=== PATIENT | male | born 1955 | race Caucasian/White ===

== ENCOUNTER 2021-07-13 21:41 | Emergency (ER) | payer OTHER, SELFPAY ==
--- NOTE | ~2021-07-13 | XR_ITS ---
EXAMINATION: XR chest 2V DATE: 07/13/2021 22:25 INDICATION: Shortness of breath. TECHNIQUE: Frontal and lateral views of the chest were obtained. COMPARISON: Chest CT 07/13/2021 FINDINGS: There is mild scarring at the lung apices. No pleural effusion or pneumothorax. The heart s ize is normal. Calcified right hilar and mediastinal lymph nodes are consistent with old granulomatou s disease. IMPRESSION: 1. Mild scarring at the lung apices. Reviewed, dictated and finalized at location A. [employer]
--- NOTE | ~2021-07-13 | CT_ITS ---
EXAMINATION: CTA chest PE protocol DATE: 07/13/2021 23:57 INDICATION: Shortness of breath. TECHNIQUE: Computed tomography angiography (CTA) of the chest was performed with 100 mL Omnipaque-350 intravenous contrast timed to evaluate the pulmonary arteries. Coronal maximum intensity projection 3D-reconstructions were created by the technologist. Automated exposure control and iterative reconst ruction technique were employed. The dose-length product was 909.33 mGy-cm. COMPARISON: None. FINDINGS: There is mild scarring at the lung apices. Calcified right lung nodules and calcified right hilar and mediastinal lymph nodes are consistent with old granulomatous disease. There is mild depen dent atelectasis bilaterally. No pleural effusion. The heart size is normal. There are coronary arter y calcifications. No pericardial effusion. There is a small sliding hiatal hernia. Calcifications in the spleen are consistent with old granulomatous disease. There are cysts in the liver measuring up t o 18 mm. There is no pulmonary embolus. There is mild thoracic spondylosis. IMPRESSION: 1. No pulmonary embolus. Sensitivity is mildly decreased by motion artifact and suboptimal contrast o pacification. 2. Small sliding hiatal hernia. Reviewed, dictated and finalized at location A. [employer] IMPRESSION: 1. No pulmonary embolus. Sensitivity is mildly decreased by motion artifact and suboptimal contrast opacification. 2. Small sliding hiatal hernia.
[2021-07-13 21:44] VITALS: BP 188/87; PULSE 107; RESP 20; TEMP 36.1; O2SAT 99
--- NOTE | 2021-07-13 21:55 | ECG_ITS ---
Measurements Intervals [place] Rate: 93 P: 32 [place]: 144 QRS: 10 QRSD: 110 T: 33 QT: 356 QTc: 443 Interpretive Statements SINUS RHYTHM DELAYED PRECORDIAL R/S TRANSITION BASELINE WANDER- V6 BORDERLINE ECG Electronically Signed On 07-14-2021 5:32:27 PILOT SUBMERSIBLE by Miguel Orona D.O.
[2021-07-13 21:58] VITALS: O2SAT 94
[2021-07-13 22:12] LABS: Basophils Percent Auto 0.4 % (0.2-1.2); Eosinophils Absolute Auto 0.5 K/mm3 (0-0.3); Eosinophils Percent Auto 5.9 % (0-4.4); Hematocrit 47.4 % (42.0-52.0); Hemoglobin 16.3 g/dL (14.0-18.0); Immature Granulocyte Absolute 0.01 K/mm3 (0.00-0.031); Immature Granulocyte Percent A 0.1 % (0-0.5); Lymphocytes Absolute Auto 3.03 K/mm3 (0.9-3.2); Lymphocytes Percent Auto 33.7 % (18.3-44.2); Mean Corpuscular HGB Conc 34.4 g/dl (32-36); Mean Corpuscular Hemoglobin 32.9 pg (26-34); Mean Corpuscular Volume 95.8 fl (80-100); Mean Platelet Volume 9.2 fl (7.4-10.4); Monocytes Absolute Auto 0.9 K/mm3 (0.1-0.6); Monocytes Percent Auto 9.7 % (2.6-8.5); Neutrophils Absolute Auto 4.5 K/mm3 (1.3-6.7); Neutrophils Percent Auto 50.2 % (45.5-73.1); Platelet Count Result 277 k/mm3 (150-375); Red Blood Count 4.95 M/mm3 (4.6-6.20); Red Cell Distribution Width 13.2 % (11.5-14.5)
--- NOTE | 2021-07-13 22:12 | ED.GENADULT ---
HPI - General Adult General Chief complaint: Shortness of Breath/Dyspnea <Daisy Cazares MD - Last Filed: 07/14/21 11:18> Stated complaint: short of breath <Daisy Cazares MD - Last Filed: 07/14/21 11:18> Time Seen by Provider: 07/13/21 21:55 <Daisy Cazares MD - Last Filed: 07/14/21 11:18> Source: patient <Daisy Cazares MD - Last Filed: 07/14/21 11:18> History of Present Illness HPI narrative: Patient is a 65 y/o male complaining of mild SOB starting several hours ago. There is no known alleviating or exacerbating factor. However, his SOB is improving spontaneously. He has no cough, chest pain or fever. <Daisy Cazares MD - Last Filed: 07/14/21 11:18> Related Data Home medications: Home Medications Medication Instructions Recorded Confirmed risankizumab-rzaa [Skyrizi] mg SUBCUT 07/13/21 <Daisy Cazares MD - Last Filed: 07/14/21 11:18> Allergies/adverse reactions: Allergies Allergy/AdvReac Type Severity Reaction Status Date / Time No Known Allergies Allergy Unknown Verified 07/13/21 21:57 <Daisy Cazares MD - Last Filed: 07/14/21 11:18> Review of Systems Constitutional: Constitutional: Denies chills, Denies fever(s), Denies headache(s) and Denies weakness <Daisy Cazares MD - Last Filed: 07/14/21 11:18> Eyes: Eyes: Denies blurry vision <Daisy Cazares MD - Last Filed: 07/14/21 11:18> ENT: Denies headache(s) and Denies neck pain <Daisy Cazares MD - Last Filed: 07/14/21 11:18> Cardiovascular: Cardiovascular: Denies chest pain and Reports dyspnea <Daisy Cazares MD - Last Filed: 07/14/21 11:18> Respiratory: Respiratory: Denies cough and Reports dyspnea <Daisy Cazares MD - Last Filed: 07/14/21 11:18> Gastrointestinal: Gastrointestinal: Denies abdominal pain, Denies diarrhea, Denies nausea and Denies vomiting <Daisy Cazares MD - Last Filed: 07/14/21 11:18> Genitourinary: Genitourinary: Denies hematuria and Denies dysuria <Daisy Cazares MD - Last Filed: 07/14/21 11:18> Musculoskeletal: Musculoskeletal: Denies back pain and Denies neck pain <Daisy Cazares MD - Last Filed: 07/14/21 11:18> Neurologic: Denies headache(s) and Denies weakness <Daisy Cazares MD - Last Filed: 07/14/21 11:18> Exam Const: General: no acute distress and well developed <Daisy Cazares MD - Last Filed: 07/14/21 11:18> Orientation/consciousness: oriented to person, oriented to place, oriented to time and patient oriented x3 <Daisy Cazares MD - Last Filed: 07/14/21 11:18> HENMT: Head: normocephalic <Daisy Cazares MD - Last Filed: 07/14/21 11:18> Ears: external ears normal <Daisy Cazares MD - Last Filed: 07/14/21 11:18> General nose exam: Normal external nose present <Daisy Cazares MD - Last Filed: 07/14/21 11:18> Eyes: General: appearance normal, both eyes and all related structures <Daisy Cazares MD - Last Filed: 07/14/21 11:18> Conjunctivae: conjunctivae normal <Daisy Cazares MD - Last Filed: 07/14/21 11:18> Neck: Neck: normal visual inspection and full ROM <Daisy Cazares MD - Last Filed: 07/14/21 11:18> Chest: Chest palpation & inspection: normal inspection of the chest and no tenderness <Daisy Cazares MD - Last Filed: 07/14/21 11:18> Resp: Effort & Inspection: normal respiratory effort <Daisy Cazares MD - Last Filed: 07/14/21 11:18> Auscultation: clear to auscultation bilaterally <Daisy Cazares MD - Last Filed: 07/14/21 11:18> Cardio: Rate: regular rate <Daisy Cazares MD - Last Filed: 07/14/21 11:18> Rhythm: regular rhythm <Daisy Cazares MD - Last Filed: 07/14/21 11:18> GI: GI Palp: No abdominal tenderness and Yes Soft to palpation <Daisy Cazares MD - Last Filed: 07/14/21 11:18> Skin: General skin exam: normal color and turgor normal <Daisy Cazares MD - Last Filed: 07/14/21 11:18> Neuro: General: oriented to person, oriented to place, oriented to time and patient oriented x3 <Daisy Cazares MD - Last Filed: 07/14/21 11:18> Cogniti
[2021-07-13 22:22] LABS: Alanine Aminotransferase 19 U/L (4-50); Albumin Level 4.1 g/dL (3.5-5.1); Alkaline Phosphatase 79 U/L (38-126); Anion Gap 8 mmol/L (8-16); Aspartate Amino Transferase 31 U/L (17-59); Bilirubin,Total 0.4 mg/dL (0.2-1.3); Blood Urea Nitrogen 16 mg/dL (9-20); Calcium 9.2 mg/dL (8.4-10.2); Carbon Dioxide 26 mmol/L (22-30); Chloride 104 mmol/L (98-107); Estimated Glomerular Filt Rate > 60; Glucose 120 mg/dL (65-110); Potassium 3.6 mmol/L (3.4-5.0); Sodium 138 mmol/L (137-145)
[2021-07-13 22:29] LABS: D Dimer 0.94 ug/mL (<0.48)
[2021-07-13 22:33] LABS: NT Pro B Type Natriuretic Pept 96 pg/mL (5-100); Troponin I < 0.012 ng/mL (0.000-0.034)
[2021-07-13 23:58] VITALS: BP 180/70; PULSE 88; RESP 20; O2SAT 96
[2021-07-14 01:29] LABS: Troponin I < 0.012 ng/mL (0.000-0.034)
[2021-07-14 02:41] VITALS: BP 164/74; PULSE 78; RESP 19; O2SAT 99
== END 2021-07-14 02:56 | disposition home or self-care (01) ==
PROVIDERS: Emergency Medicine; Emergency Provider Emergency Medicine
DX: R06.02 Shortness of breath (principal); R00.2 Palpitations
CPT/HCPCS: 36415; 71046; 71275; 80053; 83880; 84484; 85025; 85380; 93005; 99284; Q9967

== ENCOUNTER 2021-07-22 13:51 | Outpatient (CLI) | payer OTHER, SELFPAY ==
[2021-07-22 19:54] LABS: Cholesterol 198 mg/dL (0-200); HDL Direct 45 mg/dL; Triglycerides 126 mg/dL (<150)
[2021-07-22 20:06] LABS: LDL Cholesterol Direct 136 mg/dL
[2021-07-22 20:15] LABS: Hemoglobin A1C 5.2 % (<5.7)
[2021-07-22 20:26] LABS: Prostate Specific Antigen 1.3 ng/mL (< OR = 4.0)
== END 2021-07-22 13:52 | disposition home or self-care (01) ==
LOC: ANHBWCLAB 13:52
PROVIDERS: PCP Family Medicine; Visit Provider Family Medicine
DX: Z12.5 Encounter for screening for malignant neoplasm of prostate (principal); R73.09 Other abnormal glucose; Z00.00 Encounter for general adult medical examination without abnormal findings
CPT/HCPCS: 36415; 80061; 83036; 84153; G0103